=== PATIENT | male | born 1965 | race Caucasian/White ===

== ENCOUNTER → 2020-02-12 14:00 | Outpatient (BNVA) | payer OTHER, SELFPAY | PROVIDERS: Family Provider Family Medicine; PCP Nurse Practitioner; Visit Provider Nurse Practitioner Family | DX: R50.9 Fever, unspecified (principal); R53.83 Other fatigue; Z11.59 Encounter for screening for other viral diseases | CPT/HCPCS: 87635 ==

== ENCOUNTER 2020-06-08 10:49 | Inpatient (IN) | payer OTHER, SELFPAY ==
--- NOTE | 2020-06-07 | SCC_ITS ---
Procedure Done: 1. Cystoscopy with left ureteral stent placement (7 Upper Sor[place] by 30 cm double-pigtail without string) 10.9 seconds of fluoroscopic guidance, for a cumulative dose of 1.57 mGy, was provided to Dr. Haro by the radiology department. C-arm images of the abdomen were saved for the patient's permanent record. [facility]
[2020-06-08] VITALS (11 sets, daily range): BP systolic 98–133; BP diastolic 63–78; PULSE 58–112; RESP 16–20; TEMP 36.6–38.7; O2SAT 95–100; BMI 21.6
--- NOTE | 2020-06-08 11:21 | CTR_ITS ---
PROCEDURE INFORMATION: Exam: CT Abdomen And Pelvis Without Contrast Exam date and time: 06/08/2020 11:26 AM Age: 54 years old Clinical indication: Abdominal pain; Flank; Left; Additional info: Flank/abdominal pain TECHNIQUE: Imaging protocol: Computed tomography of the abdomen and pelvis without contrast. Radiation optimization: All CT scans at this facility use at least one of these dose optimization techniques: automated exposure control; mA and/or kV adjustment per patient size (includes targeted exams where dose is matched to clinical indication); or iterative reconstruction. COMPARISON: CR Upper GI w/ Air* [id number] 03/17/2017 10:37 AM RADIATION DOSE METRICS: Total DLP (mGy-cm): 486.25 FINDINGS: Lungs: Mild atelectasis left lung base. Liver: Normal. No mass. Gallbladder and bile ducts: Surgical clips are present in the region of the gallbladder fossa. Pancreas: Normal. No ductal dilation. Spleen: Splenic granulomas are present. Adrenal glands: Hypertrophy of the left adrenal gland Kidneys and ureters: Dilatation of the left renal pelvis and proximal ureter secondary to a calcification within the proximal aspect of the left ureter. This measures approximately 4 mm. Small adjacent 2 mm calcification. 4 mm calcification midpole left kidney Probable 1 cm cyst left kidney Stomach and bowel: Unremarkable. No obstruction. No mucosal thickening. Appendix: Appendix normal. Intraperitoneal space: Unremarkable. No free air. No significant fluid collection. Vasculature: Calcification of the aorta. Lymph nodes: Unremarkable. No enlarged lymph nodes. Urinary bladder: Mildly thickened however nondistended bladder. Mildly prominent prostate gland. Correlate. Reproductive: See Urinary bladder finding. Bones/joints: Unremarkable. No acute fracture. Soft tissues: Unremarkable. CT/CT kidney stone [id number] IMPRESSION: 1. Dilatation of the left renal pelvis and proximal ureter secondary to a calcification within the proximal aspect of the left ureter. This measures approximately 4 mm. Small adjacent 2 mm calcification. 2. Mildly thickened however nondistended bladder. Mildly prominent prostate gland. Correlate. 3. Appendix normal. Radiation Dose CTDIVOL = (mGy): DLP = 486.25 (mGy-cm)
[2020-06-08 11:37] LABS: Basophils % 0.4 %; Eosinophils % 0.3 %; Hematocrit 47.2 % (42.0-52.0); Hemoglobin 15.9 g/dL (11.7-16.6); Lymphocytes # 1.6 10^3/uL (0.8-4.8); Lymphocytes % 14.6 %; Mean Corpuscular HGB Conc 33.7 g/dL (30.0-36.0); Mean Corpuscular Hemoglobin 31.2 pg (28.0-34.0); Mean Corpuscular Volume 92.5 fL (80-94); Mean Platelet Volume 9.1 fL (7.4-10.4); Monocytes # 1.5 10^3/uL (0.2-0.9); Monocytes % 13.7 %; Neutrophils # 7.79 10^3/uL (1.8-7.7); Neutrophils % 70.4 %; Nucleated Red Blood Cells % 0 %; Platelet Count 277 10^3/cmm (130-400); Red Cell Distribution Width 12.2 % (12.1-15.1); White Blood Count 11.1 10^3/uL (4.0-10.0)
--- NOTE | 2020-06-08 11:44 | W.ED.MALEGU ---
HPI - Male Genitourinary General: Chief complaint: Urogenital-Male Stated complaint: suspects kidney stones Time Seen by Provider: 06/08/20 11:18 Source: patient Mode of arrival: ambulatory Limitations: no limitations History of Present Illness: HPI Narrative: Chris is a nice 54-year-old male who comes in complaining of left-sided flank pain. He states he has had the pain intermittently for the past 6 days. He states his pain feels like a kidney stone. He has had kidney stones in the past. He denies any fevers, chills, nausea, vomiting or any other complaints. He is not aware of any blood in his urine. Associated symptoms: Deny dysuria, hematuria, nausea or vomiting Review of Systems Const: Denies: fever(s), chills, body aches, fatigue, malaise or diaphoresis Eyes: Denies: change in vision, blurry vision, photophobia, eye discomfort, eye discharge, eye redness or yellow eyes ENMT: Denies: throat pain, odynophagia, hoarseness, swelling of lips/tongue, ear or mastoid pain, ear discharge, change in hearing or nasal discharge Card: Denies: chest pain, palpitations, irregular heart rhythm, edema, lightheadedness, syncope, pre-syncope, dyspnea on exertion or orthopnea Resp: Denies: dyspnea, productive cough, non-productive cough, wheezing, hemoptysis or chest congestion GI: Denies: abdominal pain, nausea, vomiting, hematemesis, coffee ground emesis, heartburn, diarrhea, constipation, GI cramping, hematochezia or melena : Reports: flank pain; Denies: dysuria, urinary frequency, urinary urgency or hematuria Musc: Denies: neck pain, back pain, extremity pain, extremity swelling, joint pain, joint swelling, joint redness, joint warmth or joint stiffness Skin/Breast: Denies: rash, pruritus, erythema, skin pain or skin tenderness Neuro: Denies: headache(s), numbness in extremities, weakness in extremities, sensory changes, lack of coordination, difficulty walking, dizziness, vertigo, confusion, Slurred speech present or seizure-like activity Keith/Lymph: Denies: easy bruising, easy bleeding, petechiae, purpura or enlarged lymph nodes All/Imm: Denies: urticaria, throat swelling, tongue swelling, facial swelling or acute wheezing PFSH ED PFSH: Medical History (Updated 06/08/20 @ 15:52 by Karen Coffey) Anxiety COPD (chronic obstructive pulmonary disease) Erectile dysfunction Esophageal dysphagia GERD (gastroesophageal reflux disease) Insomnia Smoker Urolithiasis Surgical History Hx of hernia repair Hx of repair of left rotator cuff Family History Other CAD (coronary artery disease) Cancer Diabetes Suicide Social History Smoking and tobacco status: current every day smoker cigarettes Packs smoked per day: 1 Alcohol intake: never Agree to transfusion: Yes (09/25/2019) Physical Exam Const: COMMON NORMALS: no acute distress, patient oriented x3, no limitations and alert GENERAL APPEARANCE: cooperative HENMT: COMMON NORMALS: normocephalic, atraumatic, external ears normal, EAC's normal and Normal external nose present HEAD & SCALP: normal to inspection, normocephalic and atraumatic FACE & SINUS: normal facial exam and face symmetric NOSE: Normal external nose present and Normal nares present EXTERNAL EAR: Yes external ears normal EXTERNAL AUDITORY CANAL: EAC's normal MOUTH: Normal oral and palatal mucosa present, lip normal and tongue normal Eye: COMMON NORMALS: Equal, round and reactive pupils present and conjunctivae normal GENERAL EYE: appearance normal, both eyes and all related structures ALIGNMENT: Yes alignment normal PERIORBITAL: periorbital findings normal EYELID: eyelids normal CONJUNCTIVA: Yes conjunctivae normal SCLERA: sclerae normal PUPIL: Yes Equal, round and reactive pupils present Neck/C-Spine: COMMON NORMALS: full ROM, no lymphadenopathy, supple, no meningeal signs and no JVD GENERAL: Yes normal visual inspection and Yes trachea midline Chest: COMMONS NORMALS: normal inspection of the chest and normal palpation of entire chest wall Resp: COMMON NORMALS: normal respiratory effort, No retractions, No use of accessory muscles and clear to auscultation bilaterally EFFORT & INSPECTION: Yes able to speak in complete sentences and Yes symmetric chest movement AUSCULTATION: clear to auscultation bilaterally, no crackles, no rales, no rhonchi and no wheezes Cardio: COMMON NORMALS: no JVD, regular rate, regular rhythm, S1 normal heart sound present and S2 normal heart sound present RATE: regular rate RHYTHM: regular rhythm HEART SOUNDS: S1 normal heart sound present, S2 normal heart sound present, no click, no gallops, no murmurs and no rubs GI: COMMON NORMALS: Soft to palpation and No hepatosplenomegaly present PALPATION: Yes Soft to palpation, No Tenderness to palpation present (GI), No Guarding due to palpation present (GI), No Rigid due to palpation, Yes No hepatosplenomegaly present, No Hernia present, No Palpable mass present and No Pulsatile mass present : COMMON NORMALS: Yes no CVA tenderness BLADDER/KIDNEY EXAM: Yes no CVA tenderness Back/Pelvis: COMMON NORMALS: no CVA tenderness, thoracic and lumbar spine normal to inspection, no thoracic nor lumbar tenderness and thoraco-lumbar ROM normal Extremity: COMMON NORMALS: normal to inspection, full ROM, capillary refill normal, no joint enlargement, no clubbing, cyanosis or edema and no calf tenderness Neuro: COMMON NORMALS: patient oriented x3, CN's II-XII intact bilaterally, moves all extremities, no focal motor deficits and no sensory deficits noted SENSORIUM/ORIENTATION: Yes alert MENINGEAL SIGNS: Yes no meningeal signs SPEECH: speech normal Psych: COMMON NORMALS: mental status grossly normal, Normal thought process present, cooperative, normal affect, speech normal and activity/motor behavior normal SPEECH: Yes normal speech THOUGHT PROCESS: Normal thought process present Skin: COMMON NORMALS: no rashes or lesions noted, turgor normal, no jaundice, no petechiae and no mottling GENERAL SKIN EXAM: no rashes or lesions noted and turgor normal Course Vital Signs: Vital signs: Vital Signs Pulse Rate 58 L 06/08/20 12:22 Respiratory Rate 18 06/08/20 12:22 Blood Pressure 133/77 06/08/20 12:22 Pulse Oximetry 100 06/08/20 12:22 MDM - Male MDM Narrative: Medical decision making narrative: The case including infected urine, history of fever and stone were reviewed with Dr. Haro. He is coming to take the patient to the operating room to place a stent. Lab Data: Attestation: I reviewed the patient's lab results. Labs: Lab Results 06/08/20 06/08/20 06/08/20 Range/Units 11:22 11:22 12:18 WBC 11.1 H (4.0-10.0) 10^3/ uL RBC 5.10 (4.1-5.3) 10^6/u L Hgb 15.9 (11.7-16.6) g/dL Hct 47.2 (42.0-52.0) % MCV 92.5 (80-94) fL MCH 31.2 (28.0-34.0) pg MCHC 33.7 (30.0-36.0) g/dL RDW 12.2 (12.1-15.1) % Plt Count 277 (130-400) 10^3/c mm MPV 9.1 (7.4-10.4) fL Neut % (Auto) 70.4 % Lymph % (Auto) 14.6 % [place] % (Auto) 13.7 % Eos % (Auto) 0.3 % Baso % (Auto) 0.4 % Neut # (Auto) 7.79 H (1.8-7.7) 10^3/u L Lymph # (Auto) 1.6 (0.8-4.8) 10^3/u L [place] # (Auto) 1.5 H (0.2-0.9) 10^3/u L Eos # (Auto) 0.0 (0.0-0.8) 10^3/u L Baso # (Auto) 0.0 (0.0-0.1) 10^3/u L Nucleated RBC % (a uto) 0 % Nucleated RBCs # 0.0 /100WBC Sodium 135 L (136-145) mmol/L Potassium 3.7 (3.5-5.1) mmol/L Chloride 95 L (98-107) mmol/L Carbon Dioxide 28 (22-29) mmol/L Anion Gap 15.7 (5-19) BUN 11 (6-20) mg/dL Creatinine 0.9 (0.7-1.2) mg/dL GFR Calculation 87.3 L (90-130) mL/min Glucose 120 H (65-115) mg/dL Calculated Osmolal ity 281 L (285-295) mOsm/k g Calcium 9.7 (8.5-10.5) mg/dL Total Bilirubin 0.3 (0.15-1.2) mg/dL AST 26 (0-40) U/L ALT 30 (0-41) U/L Alkaline Phosphata se 168 H (40-130) IU/L Total Protein 7.5 (6.6-8.7) g/dL Albumin 4.2 (3.5-5.2) g/dL Globulin 3.3 (1.3-4.6) g/dL Urine Color Dark yellow (Yellow) Urine Appearance Hazy A (CLEAR) Urine pH 5 (5-7) Ur Specific Gravit y 1.020 (1.005-1.030) Urine Protein 1+ H (Negative) Urine Glucose (UA) Norm (Normal) Urine Ketones 1+ H (Negative) Urine Blood 3+ H (Negative) Urine Nitrate Positive H (Negative) Urine Bilirubin 1+ H (Negative) Urine Urobilinogen 4 H (Negative) mg/dL Ur Leukocyte Rosemarie ase 2+ H (Negative) Urine RBC 10-15 H (0-2) /hpf Urine WBC 25-40 H (0-5) /hpf Ur Squamous Epith Cells Rare (0-5) /hpf Amorphous Sediment Not Reportable Urine Bacteria 4+ H (NONE) /hpf Urine Mucus 2+ /hpf Imaging Data: CT Abd/Pel: Radiologist's impression: [address] [address] [address] Scan Report Signed Patient: Chris Reis #: [id number] : 1965Acct#:[id number] Age/Sex: 54 / MADM Date: 06/08/20 Loc: ERRoom/Bed: Attending Dr: Ordering Provider/Ordering MD: Karen Coffey DO Date of Service: 06/08/20 Procedure(s): CT kidney stone [id number] Accession Number(s): [id number] Report Number: [id number] PROCEDURE INFORMATION: Exam: CT Abdomen And Pelvis Without Contrast Exam date and time: 06/08/2020 11:26 AM Age: 54 years old Clinical indication: Abdominal pain; Flank; Left; Additional info: Flank/abdominal pain TECHNIQUE: Imaging protocol: Computed tomography of the abdomen and pelvis without contrast. Radiation optimization: All CT scans at this facility use at least one of these dose optimization techniques: automated exposure control; mA and/or kV adjustment per patient size (includes targeted exams where dose is matched to clinical indication); or iterative reconstruction. COMPARISON: CR Upper GI w/ Air* [id number] 03/17/2017 10:37 AM RADIATION DOSE METRICS: Total DLP (mGy-cm): 486.25 FINDINGS: Lungs: Mild atelectasis left lung base. Liver: Normal. No mass. Gallbladder and bile ducts: Surgical clips are present in the region of the gallbladder fossa. Pancreas: Normal. No ductal dilation. Spleen: Splenic granulomas are present. Adrenal glands: Hypertrophy of the left adrenal gland Kidneys and ureters: Dilatation of the left renal pelvis and proximal ureter secondary to a calcification within the proximal aspect of the left ureter. This measures approximately 4 mm. Small adjacent 2 mm calcification. 4 mm calcification midpole left kidney Probable 1 cm cyst left kidney Stomach and bowel: Unremarkable. No obstruction. No mucosal thickening. Appendix: Appendix normal. Intraperitoneal space: Unremarkable. No free air. No significant fluid collection. Vasculature: Calcification of the aorta. Lymph nodes: Unremarkable. No enlarged lymph nodes. Urinary bladder: Mildly thickened however nondistended bladder. Mildly prominent prostate gland. Correlate. Reproductive: See Urinary bladder finding. Bones/joints: Unremarkable. No acute fracture. Soft tissues: Unremarkable. CT/CT kidney stone [id number] IMPRESSION: 1. Dilatation of the left renal pelvis and proximal ureter secondary to a calcification within the proximal aspect of the left ureter. This measures approximately 4 mm. Small adjacent 2 mm calcification. 2. Mildly thickened however nondistended bladder. Mildly prominent prostate gland. Correlate. 3. Appendix normal. Radiation Dose CTDIVOL = (mGy): DLP = 486.25 (mGy-cm) Dictated By:Martín Robles MD Signed By:Martín Robles MDSigned Date/Time:06/08/201223 DD/ 1223 Discharge Plan Discharge Patient Disposition: Admitted As Inpatient Clinical Impression: Obstructive pyelonephritis, Urolithiasis Condition: Stable Coding Level of Care Code ED Furnace Attendant for Chg Fwd Exam Comprehensive
[2020-06-08 12:38] LABS: Alanine Aminotransferase 30 U/L (0-41); Albumin Level 4.2 g/dL (3.5-5.2); Alkaline Phosphatase 168 IU/L (40-130); Anion Gap 15.7 (5-19); Aspartate Amino Transferase 26 U/L (0-40); Blood Urea Nitrogen 11 mg/dL (6-20); Calcium 9.7 mg/dL (8.5-10.5); Carbon Dioxide 28 mmol/L (22-29); Chloride 95 mmol/L (98-107); Globulin 3.3 g/dL (1.3-4.6); Glomerular Filtration Rate 87.3 mL/min (90-130); Glucose 120 mg/dL (65-115); Osmolality Calculated 281 mOsm/kg (285-295); Potassium 3.7 mmol/L (3.5-5.1); Sodium 135 mmol/L (136-145); Total Bilirubin 0.3 mg/dL (0.15-1.2); Total Protein 7.5 g/dL (6.6-8.7)
[2020-06-08 14:11] LABS: Add Urine Microscopic? YES; Bilirubin Urine 1+ (Negative); Blood Urine 3+ (Negative); Glucose Urine UA Norm (Normal); Ketones Urine 1+ (Negative); Leukocyte Esterase Urine 2+ (Negative); Nitrate Urine Positive (Negative); Protein Urine 1+ (Negative); Urine Appearance Hazy (CLEAR); Urine Color Dark Yellow (Yellow); Urobilinogen Urine 4 mg/dL (Negative); pH Urine 5 (5-7)
[2020-06-08 14:18] LABS: Bacteria Urine 4+ /hpf; Mucus Urine 2+ /hpf; Squamous Epithelial Cell Urine RARE /hpf (0-5); WBC Urine 25-40 /hpf (0-5)
[2020-06-08 14:19] LABS: Add Urine Culture? Yes
[2020-06-08] MEDS: cefTRIAXone 1,000 MG in sodium chloride 0.9% (plus) 50 ML 100 MG IV ×2 (14:32→15:46)
--- NOTE | 2020-06-08 14:38 | SC_ITS ---
WS: [id number] C-arm fluoroscopy of the left abdomen for ureteral stent, 06/08/2020 Clinical Data: stone Comparison: KUB, 09/15/2015 Findings: The proximal portion of a ureteral stent appears to lie in the region of the left renal pelvis. SC/C-arm FL for Urology Impression: Insertion of left ureteral stent.
--- NOTE | 2020-06-08 15:06 | PM.HP ---
Providers/Chief Complaint Admitting Physician: Estrellita Primary Care Provider: Dr. Long Chief Complaint: suspects kidney stones History of Present Illness Chris Reis is a 54 year old male who I evaluated for the first time today at the request of Dr. Chairez in the emergency room. The patient presented with a week long history of symptoms suspicious for left renal colic. He has had prior stones and has passed them all. He stated that this 1 was different and that he just felt terrible when he was having intermittent fever and chills. He was seen today in the emergency department with mildly elevated white count, urinalysis consistent with infection, and at least one left mid ureteral obstructing stone. He looked sick. Has not had a recent Covid test. He was negative on February 12, 2020. I reviewed with him the findings in the emergency status and the importance of having his kidney drained while continuing antibiotics in anticipation of definitive treatment of the stone at a later date. I recommended he go to the operating room emergently for stent placement and he agreed after informed consent was obtained following detailed procedure explanation, rationale for this approach, still with the need to definitively treat the stone after infection has been resolved. Review of Systems Const: Reports: fever(s), chills, fatigue and malaise Eyes: Denies: change in vision or blurry vision ENMT: Denies: throat pain Card: Denies: chest pain, palpitations or irregular heart rhythm Resp: Denies: dyspnea or productive cough GI: Reports: abdominal pain and nausea : Reports: flank pain, difficulty urinating, urinary frequency and urinary urgency Musc: Denies: joint redness or joint warmth Skin/Breast: Denies: rash or changing lesions Neuro: Denies: headache(s), numbness in extremities, Slurred speech present or seizure-like activity Psych: Denies: anxiety or memory loss Endo: Denies: flushing Keith/Lymph: Denies: easy bruising or easy bleeding All/Imm: Denies: urticaria, throat swelling or tongue swelling Medications/Allergies Home Medications Medication Instructions Recorded Confirmed Last Taken Type albuterol sulfate 90 mcg/actuation 2 inh INHALATION Q6H PRN #2 units 04/01/20 06/08/20 Unknown Rx breath activated powder inhaler fluticasone furoate 200 1 inh INHALATION DAILY #30 each 04/01/20 06/08/20 Unknown Rx mcg/actuation blister powder for inhalation pantoprazole See Rx Instructions .ROUTE .COMPLEX 04/01/20 06/08/20 Unknown History sildenafil 100 mg tablet 100 mg PO DAILY PRN #30 tab 04/04/20 06/08/20 Unknown Rx acetaminophen [Tylenol Extra 1,000 mg PO PRN 06/08/20 06/08/20 06/08/20 History Strength] ibuprofen 800 mg PO PRN 06/08/20 06/08/20 Unknown History Allergies Allergy/AdvReac Type Severity Reaction Status Date / Time Sulfa (Sulfonamide Allergy Intermediate ALGY-Rash Verified 06/08/20 10:53 Antibiotics) PFSH Acute PFSH: Medical History (Updated 06/08/20 @ 15:12 by Bro aHro MD) Anxiety COPD (chronic obstructive pulmonary disease) Erectile dysfunction Esophageal dysphagia GERD (gastroesophageal reflux disease) Insomnia Smoker Urolithiasis Surgical History Hx of hernia repair Hx of repair of left rotator cuff Family History Other CAD (coronary artery disease) Cancer Diabetes Suicide Social History Smoking and tobacco status: current every day smoker cigarettes Packs smoked per day: 1 Alcohol intake: never Agree to transfusion: Yes (09/25/2019) Vitals/I&O/Wt Last Vital Signs Pulse 58 L 06/08/20 12:22 Resp 18 06/08/20 12:22 BP 133/77 06/08/20 12:22 Pulse Ox 100 06/08/20 12:22 Weight last 48 hrs Weight 155 lb Physical Exam Const: COMMON NORMALS: no acute distress, alert and well nourished GENERAL APPEARANCE: well kempt and well developed ORIENTATION/CONSCIOUSNESS: not confused HENMT: HEAD & SCALP: normocephalic and atraumatic Eye: COMMON NORMALS: conjunctivae normal and no scleral icterus Neck/C-Spine: COMMON NORMALS: full ROM GENERAL: Yes normal visual inspection Lymph: LYMPHATIC: no lymphadenopathy noted and no lymphedema noted Chest: COMMONS NORMALS: normal inspection of the chest Resp: COMMON NORMALS: normal respiratory effort EFFORT & INSPECTION: No labored and No Actively coughing AUSCULTATION: clear to auscultation bilaterally Cardio: COMMON NORMALS: no JVD, regular rate and regular rhythm GI: COMMON NORMALS: Soft to palpation PALPATION: Yes Tenderness to palpation present (GI) : BLADDER/KIDNEY EXAM: Yes bladder normal to palpation PENIS: normal penis MEATUS: meatus normal SCROTUM: Yes testes descended bilaterally and No Scrotal tenderness present TESTES: No testicular mass Back/Pelvis: GENERAL BACK: Yes CVA tenderness CVA tenderness: left Extremity: COMMON NORMALS: no clubbing, cyanosis or edema Neuro: COMMON NORMALS: no focal motor deficits SENSORIUM/ORIENTATION: Yes alert Psych: COMMON NORMALS: mental status grossly normal APPEARANCE: Yes grossly normal and Yes well kempt ATTITUDE: Yes calm and Yes engaged THOUGHT PROCESS: Normal thought process present Skin: COMMON NORMALS: no rashes or lesions noted and no jaundice Data : 06/08/20 11:22 06/08/20 11:22 A&P Assessment and plan (1) Obstructive pyelonephritis: At least 1 left mid ureteral stone with obstruction and UTI. Patient has been febrile with fever of 103 at least. White count mildly elevated. No acute septic symptoms. To the operating room emergently for cystoscopy and stent placement. Status: Acute (2) Left ureteral calculus: Left mid ureteral stone with obstruction complicated by UTI. Status: Acute (3) Urolithiasis: History of recurrent stones. Does still have some renal calculi in addition to the acute left ureteral calculus Status: Acute Qualifiers: Urinary calculus location: kidney and ureter Qualified Code(s): N20.2 - Calculus of kidney with calculus of ureter (4) COPD (chronic obstructive pulmonary disease): Status: Acute (5) Fever: Status: Acute Qualifiers: Fever type: due to other condition Qualified Code(s): R50.81 - Fever presenting with conditions classified elsewhere Attestations Medical Necessity Statement*: Patient requires hospitalization for obstructive pyelonephritis. Emergency stenting is indicated. May require hospitalization >2 midnights for care of this. Coding Level of Care Code Acute Fixing Carpenter for [facility] Diagnoses Obstructive pyelonephritis N11.1 Left ureteral calculus N20.1 Urolithiasis N20.2 Urinary calculus location: kidney and ureter COPD (chronic obstructive pulmonary disease) J44.9 Fever R50.81 Fever type: due to other condition
[2020-06-08] MEDS: sodium chloride 0.9% 1,000 ML 30 ML IV (15:20)
--- NOTE | 2020-06-08 15:20 | ANES.PREANE2 ---
Pre-Anesthetic Assessment Pre-Anesthetic Assessment: Height/Weight: Height 1.8 m Weight 70.307 kg Pulse Resp BP Pulse Ox 58 L 18 133/77 100 06/08/20 12:22 06/08/20 12:22 06/08/20 12:22 06/08/20 12:22 Proposed Procedure: Operation Date: 06/08/20 14:35 Proposed Procedures p Cystoscopy(Not Applicable) - Bro Haro MD s Ureteral Stent Placement(Not Applicable) - Bro Haro MD Was Beta Therese taken within 24 hours: N/A Social: Social History: Tobacco (marijuana daily) Exam: Pre-Anes Outpt Exam: alert, oriented x 3, clear to auscultation bilaterally and regular rate & rhythm Airway: Submandibular: WNL Cervical ROM: WNL MP: 2 Additional comments: top plate History/ROS: No significant history except as noted Pulmonary: Pulmonary: COPD (daily inhalers) CV/HEM: CV/HEM: None reported Comments: 4th kidney stone, never had surgery for stone before : : None reported Hepatic: Hepatic: None reported GI: GI: GERD and [place] hernia Metabolic: Metabolic: None reported Musc/skel: Musc/skel: None reported Neuropsych: Neuropsych: Anxiety Anesthetic Plan: ASA status: 2 Anesthesia: Anesthesia Evaluation and MAC Risk of > 500 ml blood loss (7ml/kg in children): No PFSH Anesthesia PFSH: Medical History (Updated 06/08/20 @ 15:12 by Bro Haro MD) Anxiety COPD (chronic obstructive pulmonary disease) Erectile dysfunction Esophageal dysphagia GERD (gastroesophageal reflux disease) Insomnia Smoker Urolithiasis Surgical History Hx of hernia repair Hx of repair of left rotator cuff Family History Other CAD (coronary artery disease) Cancer Diabetes Suicide Social History Smoking and tobacco status: current every day smoker cigarettes Packs smoked per day: 1 Alcohol intake: never Agree to transfusion: Yes (09/25/2019) Data Anesthesia CBC & Chem 7: 06/08/20 11:22 06/08/20 11:22 Other Labs: Laboratory Results - last 48 hr 06/08/20 06/08/2006/08/20 11:22 11:22 12:18 WBC 11.1 H RBC 5.10 Hgb 15.9 Hct 47.2 MCV 92.5 MCH 31.2 MCHC 33.7 RDW 12.2 Plt Count 277 MPV 9.1 Neut % (Auto) 70.4 Lymph % (Auto) 14.6 [place] % (Auto) 13.7 Eos % (Auto) 0.3 Baso % (Auto) 0.4 Neut # (Auto) 7.79 H Lymph # (Auto) 1.6 [place] # (Auto) 1.5 H Eos # (Auto) 0.0 Baso # (Auto) 0.0 Nucleated RBC % (auto) 0 Nucleated RBCs # 0.0 Sodium 135 L Potassium 3.7 Chloride 95 L Carbon Dioxide 28 Anion Gap 15.7 BUN 11 Creatinine 0.9 GFR Calculation 87.3 L Glucose 120 H Calculated Osmolality 281 L Calcium 9.7 Total Bilirubin 0.3 AST 26 ALT 30 Alkaline Phosphatase 168 H Total Protein 7.5 Albumin 4.2 Globulin 3.3 Urine Color Dark yellow Urine Appearance Hazy A Urine pH 5 Ur Specific [place] 1.020 Urine Protein 1+ H Urine Glucose (UA) Norm Urine Ketones 1+ H Urine Blood 3+ H Urine Nitrate Positive H Urine Bilirubin 1+ H Urine Urobilinogen 4 H Ur Leukocyte Esterase 2+ H Urine RBC 10-15 H Urine WBC 25-40 H Ur Squamous Epith Cells Rare Amorphous Sediment Not Reportable Urine Bacteria 4+ H Urine Mucus 2+ Cardiac Studies: No Data to Display
--- NOTE | 2020-06-08 15:39 | PM.OP ---
Operative Report Date of procedure: June 08, 2020 Pre-op Diagnosis: Left obstructive pyelonephritis, left mid ureteral stone Post-op diagnosis: same Procedure Done: 1. Cystoscopy with left ureteral stent placement (7 [place] Islander by 30 cm double-pigtail without string) Pathology: none sent Surgeon: Estrellita Anesthesia: MAC Estimated blood loss: Minimal Urine output: Not measured Complications: None Condition: stable Disposition: PACU Brief History: Chris is a very pleasant 54-year-old white male who I evaluated for the first time today at the request of the emergency department for evidence of obstructive pyelonephritis. Films lab patient reviewed and examined. Recommended emergent left ureteral stent placement. Procedure: After emergent evaluation examination and obtaining of informed consent he was taken to the operating suite on 06/08/2020 where general anesthesia was administered without difficulty after appropriate timeout was performed, SCDs confirmed to be functioning, preoperative antibiotics administered, beta-jose protocol confirmed. Prepped and draped in the usual sterile fashion in dorsal lithotomy position paying careful attention to avoiding pressure points. 21 [place] Islander cystoscope with 30 degree lens was introduced into the urethral meatus and advanced into the bladder under videoscopy. The bladder showed severe cystitis changes more typical for acute cystitis. No stones were seen. Fluoroscopy revealed a calcification in the area of the left mid ureter consistent with the findings on CT scan. A flexible tip guidewire was then advanced up the left ureter bypassing the stone and curling in the area of the renal pelvis or upper pole calyx. A 7 [place] Islander by 30 cm double-pigtail stent without string was then advanced over the guidewire through the cystoscope into appropriate position as confirmed via fluoroscopy and cystoscopy. The stent was confirmed to be draining. The bladder was drained and the procedure was completed. Tolerated procedure well without complications and was awakened in the operating room and returned to recovery room in stable condition. PLANS: 1. Admit to inpatient status due to the likelihood of requiring care extending over at least 2 midnights. 2. Continue IV antibiotics and anticipate discharge on oral antibiotics pending cultures. 3. Once infection has been adequately treated we will attempt at definitive therapy either via endoscopy or ESWL.
[2020-06-08] MEDS: dextrose 5%-sod chloride 0.9% 1,000 ML 150 ML IV ×2 (18:22→23:56)
[2020-06-08] MEDS: docusate sodium 100 mg Capsule PO (18:23)
[2020-06-08] MEDS: famotidine 20 mg/2 mL INJ IVP (18:23)
[2020-06-09] VITALS: BP 105/63; PULSE 72; RESP 18; TEMP 37.1; O2SAT 96
[2020-06-09 03:30] VITALS: BP 126/71; PULSE 85; RESP 18; TEMP 37.1; O2SAT 97
[2020-06-09] MEDS: cefTRIAXone 2,000 MG in sodium chloride 0.9% (plus) 50 ML 100 MG IV (03:51)
[2020-06-09 04:00] VITALS: BP 126/71; PULSE 77; RESP 18; TEMP 37.1; O2SAT 95
[2020-06-09] MEDS: dextrose 5%-sod chloride 0.9% 1,000 ML 150 ML IV (06:10)
[2020-06-09 06:51] VITALS: PULSE 74; RESP 18; O2SAT 95
--- NOTE | 2020-06-09 06:56 | ANE.PACU2 ---
Inpatient post-anesthesia follow up: Airway intact: Yes Vital signs: Temperature 98.7 F Pulse Rate 74 Respiratory Rate 18 Blood Pressure 126/71 Pulse Oximetry 95 Oxygen Delivery Me thod Room Air Oxygen Flow Rate Fraction of Inspir ed Oxygen Hydration adequate: Yes Nausea and vomiting: No Pain level: 1 Mental status: Baseline
[2020-06-09] MEDS: famotidine 20 mg/2 mL INJ IVP (07:00)
[2020-06-09 07:24] VITALS: BP 139/74; PULSE 82; RESP 18; TEMP 36.3; O2SAT 98
--- NOTE | 2020-06-09 09:34 | PC.CHAP ---
Pastoral Care Encounter/Spiritual Assessment Type of Contact [] Declined meter installer and remover visit [] Patient/Family/Request visit [] Outpatient visit [] Follow-up visit [] Physician referral [] Code/Alert [x] Routine visit [] Staff referral [] Actively dying [] Patient sleeping [] Family support [] [] Out of room [] Palliative care [] [] Receiving care in room [] Pre-surgical visit [] Trauma [] Long length of stay [] ICU visit [] Other: Relational/Emotional Strength [] Patient feels connected with others/family/visitors/staff [] Distress [] Loneliness/isolation [] Abandonment Spirituality of Patient [] Person of [place] [] Attends Christian of their [place] [] Believes in Prayer [] Reads Bible or Oriental Orthodox materials [] There are Spiritual issues to be addressed Tractor Trailer Driver Interventions [x] Prayer [x] Active listening [x] Non-anxious presence [x] Spiritual/emotional support [] Crisis/trauma care [] Spiritual counseling [] Bereavement support [] Provided bereavement packet [] Provided Bible/devotional materials [] Provided toy/stuffed animal, coloring book to patient or family member [] Provided Communion [] Anointing/[place] [] Salvation [x] Completed spiritual assessment [] Other: Impact on Illness or Injury [] Angry [] Fearful [] Anxious [] Often cries [] Exhaustion [] Unable to work [] Unable to attend caodaism [] Unable to walk/stand [] Unable to read [] Unable to drive [] Unable to eat/drink [] Unable to sleep [] Unable to be with family [] Patient intubated [] Other: Summary patient so ready to go home... feeling so much better. missing family Time spent with patient 10 min
--- NOTE | 2020-06-09 10:39 | PC.NURSE ---
PATIENT LEAVING AMA pt called this nurse into pts room and stated, I am not staying in this hospital anymore. I need you to get this damn IV out of my arm. this nurse asked pt what was going on and why he did not want to stay, pt stated, you guys aren't doing anything for me, I haven't even heard about my lab results this morning. I am leaving. attempted to calm pt, and pt still continued to yell and cuss at this nurse. informed charge nurse, BABS Scott. Sonia attempted to talk to pt and again, pt still stating he is leaving. notified Dr. Haro via telephone, orders were to educate pt on this decision. pt still refusing to stay. IV removed by Sonia. MELINDA paperwork signed by pt.
--- NOTE | 2020-06-09 11:06 | PC.NURSE ---
this nurse was called to pts room to talk with him due to him wanting to leave AMA. When asked why patient waned to leave he stated i want a cigarette i explained to patient that we are a non-smoking facility and that i would be happy to call Dr. Haro and get an order for him to have a nicotine patch. patient stated that it wouldn't help and im not chewing the gum either this nurse explained to him the importance of waiting for the doctor to discharge him due to him needing antibiotics. patient continued to refuse to stay, he understood the risks of leaving without being discharged. pt was alert and oriented, iv was discontinued and patient left facility.
[2020-06-09 11:15] VITALS: BP 139/74; PULSE 82; RESP 18; TEMP 36.3; O2SAT 98
--- NOTE | 2020-06-09 17:17 | P.DS_ITS ---
Discharge Providers Date of Admission: 06/08/20 15:58 Date of Discharge: June 09, 2020 Attending Provider at Admission: Bro Haro MD Attending Provider at Discharge: Bro Haro MD Primary Care Provider: PATRICIA Alcaraz Diagnoses at Discharge Discharge Diagnosis (1) Obstructive pyelonephritis: Status: Acute (2) Left ureteral calculus: Status: Acute (3) Urolithiasis: Status: Acute Qualifiers: Urinary calculus location: upper urinary tract Qualified Code(s): N20.9 - Urinary calculus, unspecified (4) COPD (chronic obstructive pulmonary disease): Status: Acute (5) Fever: Status: Acute Qualifiers: Fever type: due to other condition Qualified Code(s): R50.81 - Fever presenting with conditions classified elsewhere Reason for Visit Reason for Visit: suspects kidney stones Hospital Course Hospital Course The patient was seen in the emergency department on 06/08/2020 with 1 week history of feeling terrible, having left renal colicky symptoms, and spiking temperatures to as high as 103 before the visit. Work-up revealed UTI and CT scan showed an obstructing stone or small stones in the left mid ureter. Clinically he was quite ill. For that reason it was recommended that he go to the operating room emergently for obstructive pyelonephritis in order to prevent progression to sepsis. A left ureteral stent was placed emergently and went very well. Postoperatively he did spike a fever but that improved over the next 18 hours. On postoperative day #1 the patient became quite agitated with having to stay in the hospital. Prior to my arrival to the hospital he declared that he was leaving, remove the IV, and could not be persuaded. It should be noted that I spoke to him in great detail before the procedure about just how sick he is with potential for sepsis and even if not adequately treated. He expressed understanding but obviously changed his mind. We tried to contact his but she was unavailable at the time and all of this was unfolding. I was able to reach her later and reviewed all of this with her. She was quite frustrated by this as she had been before his admission because he had refused to come to the hospital for over a week despite being quite ill. I did recommend continuing antibiotics and a prescription for LEVAQUIN 500 mg daily for 2 weeks was sent to [facility]. Final cultures are pending but he is growing greater than 100,000 colonies of gram-negative rods in his urine. The plan as expressed to his was to have him come to the office next week, obtain a plain x-ray, and make definitive plans for treatment likely with ESWL. I also reviewed with her the absolute critical importance to have the stent dealt with and removed at some point after appropriate treatment. We discussed encrustation and calcification of the stent which would make it very very difficult and with a high morbidity rate if not dealt with in appropriate timeframe. Physical Exam Const: COMMON NORMALS: no acute distress and patient oriented x3 GENERAL APPEARANCE: combative; not cooperative HENMT: COMMON NORMALS: normocephalic and atraumatic HEAD & SCALP: normocephalic and atraumatic Eye: COMMON NORMALS: negative for no scleral icterus Resp: COMMON NORMALS: normal respiratory effort EFFORT & INSPECTION: No respiratory distress Neuro: COMMON NORMALS: patient oriented x3 SENSORIUM/ORIENTATION: No Orientation impaired and No obtunded Psych: THOUGHT PROCESS: Illogical thought process present INSIGHT: Good insight present (Psych) and questionable Discharge Data Data Completed and Pending: Completed Studies During Hospitalization Category Date Time Status CT kidney stone 7 [id number] Urgent Cat Scan 06/08/20 11:21 Completed Pending at discharge Category Date Time Status C-arm Fluoroscopy [id number] Routine Exams 06/08/20 14:38 Taken Basic Metabolic P gaby Routine Lab 06/09/20 08:58 Ordered Complete Blood Co unt w/Auto Routine Lab 06/09/20 08:58 Ordered Urine Culture Sta t Lab 06/08/20 12:18 Results Vitals: Last Vital Signs Temp 97.3 F L 06/09/20 11:15 Pulse 82 06/09/20 11:15 Resp 18 06/09/20 11:15 BP 139/74 06/09/20 11:15 Pulse Ox 98 06/09/20 11:15 Discharge Plan Discharge Patient Disposition: Left Against Medical Advice Condition: Stable Prescriptions: No Action pantoprazole See Rx Instructions .ROUTE .COMPLEX RF: 0 Arnuity Ellipta 200 mcg/actuation blister with device 1 inh INHALATION DAILY Qty: 30 RF: 2 ProAir RespiClick 90 mcg/actuation aerosol powdr breath activated 2 inh INHALATION Q6H PRN (Reason: shortness of breath or wheezing) Qty: 2 RF: 3 sildenafil 100 mg tablet 100 mg PO DAILY PRN (Reason: sexual activity) Qty: 30 RF: 3 levofloxacin 500 mg tablet 500 mg PO DAILY Qty: 14 RF: 1 Tylenol Extra Strength 500 mg Tablet 1,000 mg PO PRN RF: 0 ibuprofen 200 mg Tablet 800 mg PO PRN RF: 0 Activity Restrictions/Additional Instructions: Patient left before capable of doing this Discharge Attestations Time Spent in Discharge Care*: less than 30 min Quality Metrics Clinical Quality Measures During this hospital stay, did patient experience: None Coding Level of Care Code Acute Parking Worker for [facility] Fwd Diagnoses Obstructive pyelonephritis N11.1 Left ureteral calculus N20.1 Urolithiasis N20.9 Urinary calculus location: upper urinary tract COPD (chronic obstructive pulmonary disease) J44.9 Fever R50.81 Fever type: due to other condition
--- NOTE | 2020-06-10 14:51 | PC.RESP ---
Smoking Cessation and Pulmonary Rehab packet sent to patient.
== END 2020-06-09 11:06 | disposition left against medical advice (07) | DRG 661 ==
LOC: ER 11:18 → OR 14:27 → MEDSURG 15:58
PROVIDERS: Admitting Provider Urology; Emergency Provider Emergency Medicine; PCP Nurse Practitioner; Visit Provider Urology
PROC: 0TJB8ZZ Inspection of Bladder, Via Natural or Artificial Opening Endoscopic (ICD-10-PCS; CPT 52000; principal; 2020-06-08 14:35)
PROC: 0T778DZ Dilation of Left Ureter with Intraluminal Device, Via Natural or Artificial Opening Endoscopic (ICD-10-PCS; CPT 50605; 2020-06-08 14:35)
DX: N11.1 Chronic obstructive pyelonephritis (principal); J44.9 Chronic obstructive pulmonary disease, unspecified; Z53.29 Procedure and treatment not carried out because of patient's decision for other reasons; N20.1 Calculus of ureter; F41.9 Anxiety disorder, unspecified; K21.9 Gastro-esophageal reflux disease without esophagitis; F17.210 Nicotine dependence, cigarettes, uncomplicated
CPT/HCPCS: 12345; 74176; 76000; 80053; 81001; 85025; 87077; 87086; 87186; 96375; 99282; C2625; J0696; J1100; J2405; J2704; J3010; J3490; J7030

== ENCOUNTER 2020-06-18 10:08 | Outpatient (CLI) | payer OTHER, SELFPAY ==
--- NOTE | 2020-06-18 10:30 | XR_ITS ---
WS: [id number] KUB, 06/18/2020 Clinical Data: Stones Comparison: KUB, 09/15/2015. CT abdomen and pelvis, 06/08/2020. Findings: No abnormal intraabdominal masses or calcifications are seen. There is no dilatated small bowel or ev idence of obstruction. There is a left ureteral catheter in position. Bowel gas obscures detail over the left kidney and lef t ureter. There are clips in the right upper quadrant from a cholecystectomy. XR/XR KUB [id number] Impression: Satisfactory position of left ureteral catheter.
== END 2020-06-18 10:09 | disposition home or self-care (01) ==
LOC: RAD 10:11
PROVIDERS: PCP Nurse Practitioner; Visit Provider Urology
DX: N20.9 Urinary calculus, unspecified (principal); Z96.0 Presence of urogenital implants
CPT/HCPCS: 74018; 81003; 87635

== ENCOUNTER 2020-06-19 10:20 | Day surgery (SDC) | payer OTHER, SELFPAY ==
[2020-06-18 17:13] VITALS: BMI 21.6
[2020-06-19] VITALS (9 sets, daily range): BP systolic 118–147; BP diastolic 60–81; PULSE 59–85; RESP 14–20; TEMP 36.2–36.6; O2SAT 96–100
--- NOTE | 2020-06-19 | SCC_ITS ---
Procedure Done: 1. Cystoscopy, ureteroscopy, laser lithotripsy, stent 18.6 seconds of fluoroscopic guidance, for a cumulative dose of 3.32 mGy, was provided to Dr. Haro by the radiology department. C-arm images of the abdomen were saved for the patient's permanent record. [facility]
--- NOTE | 2020-06-19 10:39 | SC_ITS ---
WS: [id number] C-arm fluoroscopy of the left abdomen for ureteral stent location, 06/19/2020 Clinical Data: LEFT ureteroscopy Comparison: KUB, 06/18/2020 Findings: The left ureteral catheter is looped and is probably within the left renal pelvis. SC/C-arm FL for Urology Impression: Left ureteral stent.
--- NOTE | 2020-06-19 10:57 | ANES.PREANE2 ---
Pre-Anesthetic Assessment Pre-Anesthetic Assessment: Height/Weight: Height 1.8 m Weight 70.307 kg Temp Pulse Resp BP Pulse Ox 97.8 F 84 17 137/81 99 06/19/20 10:42 06/19/20 10:42 06/19/20 10:42 06/19/20 10:42 06/19/20 10:42 Preop Diagnosis: Left ureteral calculus status post emergency stenting for obstructive pyelo Proposed Procedure: Operation Date: 06/19/20 12:00 Proposed Procedures p Left Laser Lithotripsy 81031 [id number] N20.1 N11.1(Not Applicable) - Bro Haro MD s Cystoscopy(Not Applicable) - Bro Haro MD s Retrograde Pyelogram(Left) - Bro Haro MD s Ureteral Stent Exchange(Not Applicable) - Bro Haro MD Familial anesthetic complications: None Was Beta Therese taken within 24 hours: N/A Last intake: NPO > 8 hrs Social: Social History: Tobacco and No alcohol Comment: Marijuana Exam: Pre-Anes Outpt Exam: alert, oriented x 3, clear to auscultation bilaterally and regular rate & rhythm Airway: Cervical ROM: WNL MP: 2 Dentition: Other (top plates) Pulmonary: Pulmonary: COPD GI: GI: GERD and Hiatus hernia Neuropsych: Neuropsych: Anxiety Anesthetic Plan: ASA status: 2 Anesthesia: General Risk of > 500 ml blood loss (7ml/kg in children): No PFSH Anesthesia PFSH: Medical History Anxiety COPD (chronic obstructive pulmonary disease) Erectile dysfunction Esophageal dysphagia GERD (gastroesophageal reflux disease) Insomnia Smoker Urolithiasis Surgical History (Updated 06/18/20 @ 17:12 by Teresa Sifuentes) Hx of hernia repair Hx of repair of left rotator cuff Family History Other CAD (coronary artery disease) Cancer Diabetes Suicide Social History Smoking and tobacco status: current every day smoker cigarettes Packs smoked per day: 1 Alcohol intake: never Adopted: No Caregiver/support person: No Lives independently: No Household members: spouse Marital status: Current occupational status: employed Agree to transfusion: Yes (09/25/2019) Data Anesthesia Cardiac Studies: No Data to Display
[2020-06-19] MEDS: sodium chloride 0.9% 1,000 ML 30 ML IV (10:58)
[2020-06-19] MEDS: levofloxacin-dextrose 5 % 500 MG/100 ML PREMIX 100 MG IV (12:32)
--- NOTE | 2020-06-19 12:33 | P.HPUD_ITS ---
Surgery/Procedure H&P Update DATE OF PROCEDURE: June 19, 2020 DATE H&P PERFORMED: 06/18/20 H&P UPDATE INFORMATION: I have reviewed H&P completed within last 30 days, I have examined patient prior to procedure, No changes to prior documentation and H&P is in [facility] EMR on date indicated PREOP DIAGNOSIS: Left ureteral calculus status post emergency stenting for obstructive pyelo PLANNED PROCEDURE: Operation Date: 06/19/20 12:00 Proposed Procedures p Left Laser Lithotripsy 15829 [id number] N20.1 N11.1(Not Applicable) - Bro Haro MD s Cystoscopy(Not Applicable) - Bro Haro MD s Retrograde Pyelogram(Left) - Bro Haro MD s Ureteral Stent Exchange(Not Applicable) - Bro Haro MD
--- NOTE | 2020-06-19 12:36 | P.OP_ITS ---
Operative Report Date of procedure: June 19, 2020 Pre-op Diagnosis: Left ureteral calculus status post emergency stenting for obstructive pyelo Post-op diagnosis: same Procedure Done: 1. Cystoscopy, ureteroscopy, laser lithotripsy, stent Specimens removed/disposition: Stone fragments Pathology: Stone fragments Surgeon: Estrellita Anesthesia: General Estimated blood loss: Minimal Complications: None Condition: stable Disposition: PACU Brief History: Chris is a pleasant 54-year-old white male who was recently hospitalized with obstructive left pyelonephritis with a large stone in the left mid ureter. He underwent emergency stenting and hospitalization for antibiotic therapy. Ultimately grew a pansensitive organism. Unfortunately he did leave AMA on the postoperative day #1 but held his own on oral Levaquin with no progression of infection. He is being admitted today to outpatient surgery for ureteroscopic laser lithotripsy of the stone. Timing was considered important due to the infection concerns Procedure: After routine preoperative evaluation examination and obtaining of informed consent he was taken to the operating suite on 06/19/2020 where general anesthesia was administered without difficulty after appropriate timeout was performed, SCDs confirmed to be functioning, preoperative antibiotics administered, beta-jose protocol confirmed. Prepped and draped in usual sterile fashion in dorsal lithotomy position paying careful attention to avoiding pressure points. 21 Croatian cystoscope with 30 degree lens was introduced into the urethral meatus and advanced into the bladder under videoscopy. No stones were seen in the bladder. Stent was in the expected position Flexible tip guidewire was then advanced up the left ureter next to the stent with curling in the upper pole calyx. The stent was removed with grasping forceps. The wire was secured to the drapes as a safety wire. A 7.5 Croatian offset semirigid ureteroscope was then advanced up the left ureter. Surprisingly a small stone was encountered in the left distal ureter. This was fragmented with a 200 ?m thulium superpulse laser and the fragments washed out into the bladder. The scope was then passed more proximally in the previously identified mid ureteral it showed stone was encountered in the expected position. Some evidence of mild impaction. It was fragmented with a 200 ?m thulium superpulse laser fiber into small pieces that were then easily withdrawn with a parachute basket and flushed free as well. Final inspection revealed no residual fragments and confirmed the inflammatory changes at the site of the previous stone location. For that reason it was decided to leave a stent indwelling at the completion of the procedure. A 6 Croatian by 30 cm double-pigtail stent was advanced over the guidewire through the cystoscope into appropriate position as confirmed via fluoroscopy and cystoscopy. The bladder was drained procedure completed. Tolerated the procedure well without complications and was awakened in the operating room and returned to the recovery room in stable condition. PLANS: 1. Discharge from outpatient surgery today 2. Follow-up early next week for cystoscopy and stent removal in the clinic. 3. Complete antibiotics
--- NOTE | 2020-06-19 17:26 | ANE.PACU2 ---
Inpatient post-anesthesia follow up: Airway intact: Yes Vital signs: Temperature 97.2 F Pulse Rate 81 Respiratory Rate 18 Blood Pressure 144/70 Pulse Oximetry 97 Oxygen Delivery Me thod Room Air Oxygen Flow Rate 6 Fraction of Inspir ed Oxygen Hydration adequate: Yes Nausea and vomiting: No Pain level: 1 Mental status: Baseline
[2020-06-25 21:43] LABS: Stone Source LEFT URETER
== END 2020-06-19 14:40 | disposition home or self-care (01) ==
PROVIDERS: PCP Nurse Practitioner; Visit Provider Urology
PROC: (CPT 52356; principal; 2020-06-19 12:00)
PROC: 0TJB8ZZ Inspection of Bladder, Via Natural or Artificial Opening Endoscopic (ICD-10-PCS; CPT 52000; 2020-06-19 12:00)
PROC: (CPT 74420; 2020-06-19 12:00)
PROC: (CPT 52356; 2020-06-19 12:00)
DX: N20.1 Calculus of ureter (principal); J44.9 Chronic obstructive pulmonary disease, unspecified; K21.9 Gastro-esophageal reflux disease without esophagitis; F41.9 Anxiety disorder, unspecified; F17.210 Nicotine dependence, cigarettes, uncomplicated; Z82.49 Family history of ischemic heart disease and other diseases of the circulatory system
CPT/HCPCS: 52356; 12345; 76000; 82365; 88300; 96365; C2625; J1100; J1956; J2250; J2405; J2704; J2710; J3010; J3490; J7030

== ENCOUNTER 2022-02-22 10:22 | Outpatient (CLI) | payer SELFPAY ==
--- NOTE | 2022-02-22 10:49 | XR_ITS ---
WS: [id number] XR KUB [id number] REASON FOR EXAM: Nephrolithiasis FINDINGS: No definite intrarenal calculi are identified. No calculi are identified along the abdominal course of the ureters. There is an angular calcification in the left pelvis which is not identified on previous examinations . No other significant abnormality of the abdomen. XR/XR KUB [id number] IMPRESSION: Possible distal left ureteral calculus.
== END 2022-02-22 10:23 | disposition home or self-care (01) ==
PROVIDERS: PCP Family Medicine Adult Medicine; Visit Provider Urology
DX: N20.9 Urinary calculus, unspecified (principal)
CPT/HCPCS: 74018; 81000

== ENCOUNTER → 2022-07-15 15:07 | Outpatient (BNVA) | payer SELFPAY | PROVIDERS: PCP Family Medicine Adult Medicine; Visit Provider Family Medicine Adult Medicine | DX: J44.9 Chronic obstructive pulmonary disease, unspecified (principal); R53.83 Other fatigue; Z87.891 Personal history of nicotine dependence; M19.021 Primary osteoarthritis, right elbow; M19.022 Primary osteoarthritis, left elbow; N20.9 Urinary calculus, unspecified; N52.9 Male erectile dysfunction, unspecified | CPT/HCPCS: 80053; 80061; 84443; 85025 ==

== ENCOUNTER 2023-07-21 13:02 | Outpatient (CLI) | payer MEDICAID, SELFPAY ==
--- NOTE | 2023-07-21 13:45 | CT_ITS ---
WS: [id number] LDCT LUNG CANCER SCREENING HISTORY: smoked for 40+ years TECHNIQUE: Axial imaging performed from the apices to 1 cm below the costophrenic angles. Coronal and sagittal reformats are submitted with axial MIP series. All CT scans at [facility] use at least one of these dose optimization techniques: automated exposure control; mA and/or kV adjustment per patient size (includes targeted exams where dose is matched to clinical indication); or iterativ e reconstruction. DLP: 65.00 mGy.cm DIvol: Mean CTDIvol: 1.10 (mGy) COMPARISON: None available. Diagnostic quality: Satisfactory Lungs: Mild chronic emphysema. Several bilateral calcified granulomas are identified. 4 mm nodule LEF T lung base, image 195 of series 4. No endobronchial lesions. Heart: Normal size heart with no pericardial effusion.. Other findings: Mild atherosclerosis aorta. Benign calcified hilar lymph nodes. Prior cholecystectomy . Nonobstructing calcification superior pole LEFT kidney. No adrenal mass. IMPRESSION: CT/CT lung screening [id number] LUNG-RADS: 2-Benign Appearance or Behavior FOLLOW UP: 12 Month: Continue annual screening with LDCT OTHER FINDINGS (S MODIFIER): None.
== END 2023-07-21 13:03 | disposition home or self-care (01) ==
LOC: RAD 13:03
PROVIDERS: PCP Family Medicine Adult Medicine; Visit Provider Family Medicine Adult Medicine
DX: Z12.2 Encounter for screening for malignant neoplasm of respiratory organs (principal); Z87.891 Personal history of nicotine dependence
CPT/HCPCS: 71271

== ENCOUNTER 2024-10-03 14:04 | Outpatient (CLI) | payer MEDICAID, SELFPAY ==
--- NOTE | 2024-10-03 14:30 | CT_ITS ---
WS: [id number] LDCT LUNG CANCER SCREENING HISTORY: jenny dep remission; quit 2021; 45pk yr; screening TECHNIQUE: Axial imaging performed from the apices to 1 cm below the costophrenic angles. Coronal and sagittal reformats are submitted with axial MIP series. All CT scans at [facility] use at least one of these dose optimization techniques: automated exposure control; mA and/or kV adjustment per patient size (includes targeted exams where dose is matched to clinical indication); or iterative reconstruction. DLP: 60.90 mGy.cm DIvol: Mean CTDIvol: 0.90 (mGy) COMPARISON: 07/21/2023 Diagnostic quality: Satisfactory Lungs: Pulmonary hyperexpansion. Calcified granulomata. Linear scar and nodule LEFT lower lobe is similar to the prior study with no progression. No increase in size of the 4 mm nodule. Smaller adjacent micronodule. No endobronchial lesions. Heart: Normal size heart with no pericardial effusion.. Other findings: Hilar and mediastinal calcified lymph nodes. No identifiable adenopathy. Small hiatal hernia. Splenic granulomata. Prior cholecystectomy. No adrenal mass. CT/CT lung screening [id number] IMPRESSION: LUNG-RADS: 2-Benign Appearance or Behavior FOLLOW UP: 12 Month: Continue annual screening with LDCT OTHER FINDINGS (S MODIFIER): None.
== END 2024-10-03 14:05 | disposition home or self-care (01) ==
LOC: RAD 14:05
PROVIDERS: PCP Family Medicine; Visit Provider Family Medicine
DX: Z12.2 Encounter for screening for malignant neoplasm of respiratory organs (principal); Z87.891 Personal history of nicotine dependence; R91.8 Other nonspecific abnormal finding of lung field; J84.10 Pulmonary fibrosis, unspecified; J98.4 Other disorders of lung; I89.8 Other specified noninfective disorders of lymphatic vessels and lymph nodes; K44.9 Diaphragmatic hernia without obstruction or gangrene; Z90.49 Acquired absence of other specified parts of digestive tract; D73.89 Other diseases of spleen
CPT/HCPCS: 71271

== ENCOUNTER 2024-10-15 08:05 | Outpatient (CLI) | payer MEDICAID, SELFPAY ==
--- NOTE | 2024-10-15 08:14 | XR_ITS ---
WS: [id number] XR cervical spine 3V* [id number] REASON FOR EXAM: neck pain FINDINGS: Straightening of the normal lordosis of the cervical spine. No focal vertebral body lesion. Moderate posterior and anterior osteophytosis C3-C7. Severe narrowing of the intervertebral disc space at C3-C4 with significant narrowing at C5-C6 and C6-C7. Significant anterolisthesis C4 in relation to C3. Moderate anterolisthesis of C4 in relation to C5 and C6 in relation to C5. XR/XR cervical spine 3V* [id number] IMPRESSION: Severe is degenerative spondylosis with malalignment as above.
[2024-10-15 09:07] LABS: Basophils # 0.1 10^3/uL (0.0-0.1); Basophils % 0.6 %; Eosinophils # 0.2 10^3/uL (0.0-0.8); Eosinophils % 2.2 %; Hematocrit 48.1 % (37-53); Lymphocytes # 3.6 10^3/uL (0.8-4.8); Mean Corpuscular HGB Conc 33.1 g/dL (30-55); Mean Corpuscular Hemoglobin 31.9 pg (27-33); Mean Corpuscular Volume 96.6 fl (82-101); Mean Platelet Volume 8.8 fL (7.4-10.4); Monocytes # 0.8 10^3/uL (0.2-0.9); Monocytes % 8.4 %; Neutrophils # 4.36 10^3/uL (1.8-7.7); Neutrophils % 48.5 %; Nucleated Red Blood Cells % 0 %; Platelet Count 354 10^3/cmm (157-399); Red Blood Count 4.98 10^6/uL (3.85-5.65); Red Cell Distribution Width 13.3 % (12.1-15.1); White Blood Count 8.98 10^3/uL (3.29-11.43)
[2024-10-15 09:24] LABS: Alanine Aminotransferase 10 U/L (0-41); Albumin Level 4.7 g/dL (3.5-5.2); Alkaline Phosphatase 115 U/L (40-130); Anion Gap 12.1 (5-19); Aspartate Amino Transferase 15 U/L (0-40); Blood Urea Nitrogen 11 mg/dL (8-23); Calcium 9.5 mg/dL (8.5-10.5); Carbon Dioxide 30 mmol/L (22-29); Chloride 102 mmol/L (98-107); Chol HDL Ratio 3.51 mg/dL (1.0-5.00); Cholesterol 172 mg/dL (0-200); Globulin 2.3 g/dL (1.3-4.6); Glomerular Filtration Rate 85.8 mL/min (90-130); Glucose 93 mg/dL (65-115); HDL Cholesterol 49 mg/dL (60-100); LDL Cholesterol Calculated 106 mg/dL (50-129); LDL HDL Ratio 2.16 RATIO (0.00-3.22); Osmolality Calculated 289 mOsm/kg (285-295); Potassium 4.1 mmol/L (3.5-5.1); Sodium 140 mmol/L (136-145); Total Bilirubin 0.3 mg/dL (0.15-1.2); Triglycerides 86 mg/dL (0-150)
== END 2024-10-15 08:06 | disposition home or self-care (01) ==
PROVIDERS: PCP Family Medicine; Visit Provider Family Medicine
DX: M47.892 Other spondylosis, cervical region (principal); R74.8 Abnormal levels of other serum enzymes; K21.00 Gastro-esophageal reflux disease with esophagitis, without bleeding; M19.021 Primary osteoarthritis, right elbow; M19.022 Primary osteoarthritis, left elbow; M50.31 Other cervical disc degeneration, high cervical region; M50.322 Other cervical disc degeneration at C5-C6 level; M50.323 Other cervical disc degeneration at C6-C7 level; M43.12 Spondylolisthesis, cervical region
CPT/HCPCS: 36415; 72040; 80053; 80061; 85025

== ENCOUNTER 2024-10-19 11:29 | Outpatient (CLI) | payer MEDICAID, SELFPAY ==
--- NOTE | 2024-10-19 11:45 | MR_ITS ---
WS: [id number] MRI CERVICAL SPINE NONCONTRAST TECHNIQUE: Sagittal T1, T2 and STIR imaging. Axial T2, gradient, and fiesta imaging. CLINICAL INFORMATION: bilateral cervical radiculopathy; R>L; severe changes on xra COMPARISON: None. FINDINGS: Straightening with slight reversal the normal cervical lordosis. Myelomalacia in the cervical cord at C3-C4. Retrolisthesis C3 on C4 with moderate to severe central canal stenosis with indentation and flattening of the cervical cord. Minimal spinal canal dimension measures 5.7 mm C2-C3: Advanced LEFT facet arthropathy. Severe LEFT bony foraminal narrowing. Mild RIGHT foraminal narrowing. C3-C4: Disc osteophyte protrusion with indentation and slight flattening of the cervical cord. Moderate to severe central canal stenosis. Severe LEFT greater than RIGHT bony foraminal narrowing. Moderate facet arthropathy uncovertebral joint hypertrophy. C4-C5: Broad-based central disc bulging. Moderate facet arthropathy. Mild central canal stenosis with slight indentation of the cervical cord. Moderate RIGHT and mild LEFT foraminal narrowing. Moderate facet arthropathy. C5-C6: Central disc osteophyte protrusion with indentation of the cervical cord. Moderate central canal stenosis. Moderate to severe bilateral bony foraminal narrowing. Moderate facet arthropathy. C6-C7: Disc osteophyte complex eccentric to the LEFT. Severe LEFT and moderate RIGHT bony foraminal narrowing. Mild to moderate central canal stenosis. C7-T1: Mild LEFT and no significant RIGHT foraminal narrowing. Spinal canal is patent. Visualized brain stem structures: Normal. Prevertebral soft tissues: Normal. MR/MR cervical spin wo con* [id number] IMPRESSION: 1. Straightening with slight reversal the normal cervical lordosis. 2. Moderate to severe central canal stenosis C3-C4 with central disc osteophyt e protrusion described above. Recommend spine surgery consultation. 3. Chronic myelomalacia in the cervical cord at C4. 4. Mild central canal stenosis C4-5 and moderate central canal stenosis C5-C6. 5. Multilevel moderate to severe bony foraminal narrowing described above. 6. Small amount of facet synovitis at LEFT C2-3 and RIGHT C4-5.
== END 2024-10-19 11:30 | disposition home or self-care (01) ==
PROVIDERS: PCP Family Medicine; Visit Provider Family Medicine
DX: M47.22 Other spondylosis with radiculopathy, cervical region (principal); M48.02 Spinal stenosis, cervical region; M25.78 Osteophyte, vertebrae; G95.89 Other specified diseases of spinal cord; M65.88 Other synovitis and tenosynovitis, other site; M43.12 Spondylolisthesis, cervical region; R93.7 Abnormal findings on diagnostic imaging of other parts of musculoskeletal system; M47.892 Other spondylosis, cervical region; M50.21 Other cervical disc displacement, high cervical region; M50.321 Other cervical disc degeneration at C4-C5 level; M50.222 Other cervical disc displacement at C5-C6 level; M48.03 Spinal stenosis, cervicothoracic region
CPT/HCPCS: 72141

== ENCOUNTER 2024-11-08 08:02 | Outpatient (CLI) | payer MEDICAID, SELFPAY ==
--- NOTE | 2024-11-08 08:07 | XR_ITS ---
WS: [id number] Exam: XR lumbar spine 2-3V* [id number] Date/Time of Exam: 11/08/2024 8:11 AM Reason For Exam: chronic low back pain Comparison 11/22/2011. No fracture. Degenerative vacuum disc at L5-S1 with spondylosis. Posterior elements are intact. Remaining discs are preserved. Facet DJD at L5-S1. XR/XR lumbar spine 2-3V* [id number] IMPRESSION: 1. No fracture or malalignment. 2. Moderate degenerative change at L5-S1 as detailed above.
--- NOTE | 2024-11-08 08:30 | FL_ITS ---
WS: [id number] Exam: FL barium swallow [id number] Date/Time of Exam: 11/08/2024 8:11 AM Reason For Exam: Fluoroscopy time: minutes # of spot films: 2 Comparison 03/17/2017. Oral pharyngeal phase of swallowing was normal. There was no evidence of esophageal mass or stricture. Normal esophageal motility was observed. The esophagus is not displaced. No hiatal hernia or gastroesophageal reflux identified. FL/FL barium swallow [id number] IMPRESSION: 1. Unremarkable barium swallow
== END 2024-11-08 08:03 | disposition home or self-care (01) ==
PROVIDERS: PCP Family Medicine; Visit Provider Family Medicine
DX: R13.10 Dysphagia, unspecified (principal); M47.897 Other spondylosis, lumbosacral region; M51.379 Other intervertebral disc degeneration, lumbosacral region without mention of lumbar back pain or lower extremity pain
CPT/HCPCS: 72100; 74220

== ENCOUNTER 2025-05-31 18:49 | Emergency (ER) | payer MEDICAID, SELFPAY ==
--- OUTSIDE RECORDS SUMMARY | 2025-05-30 09:05 | XMS_ITS | Encounter Summary ---
Author Organization [facility] Address [address] [place] [address] Care Team Providers Care Meteorological Observer Name Role Phone Unavailable Primary Care Provider Unavailabl e Encounter Details Date Type Department Care Team (Latest Contact Info) Description 05/30/2025 9:05 AM CHHA Ancillary Procedure [facility] Spine and Pain Radiology [address] [place] [address] Inessa Villalpando PA [address] [place] [id number] S/P cervical spinal fusion Social History Tobacco Use Types Packs/Day Years Used Date Smoking Tobacco: Former Cigarettes 1 43 1 979 - 2021 Smokeless Tobacco: Former Chew Quit: 2021 Comments:Chewed for 40 yrs Alcohol Use Standard Drinks/Week Comments Never 0 (1 standard drink = 0.6 oz pur e alcohol) Feeling Safe Answer Date Recorded Are you in a relationship wi th someone who hurts you emotionally and/or physically? No 12/31/2024 Sex and Gender Information Value Date Recorded Sex Assigned at Not on file Legal Sex Male 12:41 PM CHHA Gender Identity Not on file Sexual Orientation Not on file documented as of this encounter Plan of Treatment Not on file documented as of this encounter Procedures Procedure Name Priority Date/Time Associated Diagnosis Comments XR CERVICAL SPINE 2 OR 3 VIEWS Routine 05/30/2025 9:17 AM CHHA S/P cervical spinal fusion documented in this encounter Results * XR CERVICAL SPINE 2 OR 3 VIEWS (05/30/2025 9:17 AM CHHA) Anatomical Region Laterality Modality Spine Computed Radiogr aphy 05/30/2025 9:17 AM CHHA Impressions 05/30/2025 9:46 AM CHHA IMPRESSION: Please see below. Exam: XR CERVICAL SPINE 2 OR 3 VIEWS Date/Time of Exam: 05/30/2025 9:17 AM Reason For Exam: See Diagnosis. Diagnosis: S/P cervical spinal fusion. Comparison: 02/25/2025. Findings: Two upright views of the cervical spine demonstrate ACDF C3-4. Severe degenerative disc space narrowing C5-6 and C6-7. Stable mild anterior subluxation C2 on C3 and posterior subluxation of C5 on C6. Negative for acute apparent hardware complication. Multilevel facet degenerative change. Prevertebral soft tissues and posterior elements are otherwise unremarkable. A normal atlantoaxial relationship is identified. Old granulomatous residuals. Old healed fracture formers of the right first and second ribs. Impression: 1. Stable examination. Narrative Procedure Note Lulu Eubanks MD - 05/30/2025 IMPRESSION: Please see below. Exam: XR CERVICAL SPINE 2 OR 3 VIEWS Date/Time of Exam: 05/30/2025 9:17 AM Reason For Exam: See Diagnosis. Diagnosis: S/P cervical spinal fusion. Comparison: 02/25/2025. Findings: Two upright views of the cervical spine demonstrate ACDF C3-4. Severe degenerative disc space narrowing C5-6 and C6-7. Stable mild anterior subluxation C2 on C3 and posterior subluxation of C5 on C6. Negative for acute apparent hardware complication. Multilevel facet degenerative change. Prevertebral soft tissues and posterior elements are otherwise unremarkable. A normal atlantoaxial relationship is identified. Old granulomatous residuals. Old healed fracture formers of the right first and second ribs. Impression: 1. Stable examination. Inessa HEIN DIAGNOSTIC IMAGING OR DERABLES Final Result documented in this encounter Visit Diagnoses Diagnosis S/P cervical spinal fusion Arthrodesis status documented in this encounter
--- OUTSIDE RECORDS SUMMARY | 2025-05-30 09:30 | XMS_ITS | Encounter Summary ---
Author Organization [facility] Address [address] [place] [address] Care Team Providers Care Lime Filter Operator Name Role Phone Unavailable Primary Care Provider Unavailabl e Reason for Visit * Reason Comments Follow Up Encounter Details Date Type Department Care Team (Late st Contact Info) Description 05/30/2025 9:30 AM DUAL RATE DEALER Office Visit [facility] Spine Neurosurgery [address] [place] [address] Inessa Villalpando PA [address] [place] [address] S/P cervical spinal fusion (Primary Dx) Social History Tobacco Use Types Packs/Day Years [...] on file Legal Sex Male 12:41 PM DUAL RATE DEALER Gender Identity Not on file Sexual Orientation Not on file documented as of this encounter Last Filed Vital Signs Vital Sign Reading Time Taken Comments Blood Pressure 130/72 05/30/2025 9:27 AM DUAL RATE DEALER Pulse - - Temperature - - Respiratory Rate - - Oxygen Saturation - - Inhaled Oxygen Concentration - - Weight 63 kg (139 lb) 05/30/2025 9:27 AM DUAL RATE DEALER Height 177.8 cm (5' 10 ) 05/30/2025 9:27 AM DUAL RATE DEALER Body Mass Index 19.94 05/30/2025 9:27 AM DUAL RATE DEALER documented in this encounter Progress Notes * Inessa Villalpando PA - 05/30/2025 9:32 AM CST NEUROSURGERY Subjective: Patient seen today in follow up. Known to us from C3-4 ACDF done in December 2024. Doing very well overall, no pain. Symptoms from priorto surgery resolved. Having some minor muscle soreness at times. PMHX/ROS Patient Active Problem List Diagnosis Date Noted Preoperative general physical examination 12/05/2024 Cervical myelopathy ([facility]/HCC) 12/05/2024 COPD (chronic obstructive pulmonary disease) ([facility]) 12/05/2024 History of tobacco use 12/05/2024 Allergic rhinitis 12/05/2024 GERD without esophagitis 12/05/2024 Past Medical History: Diagnosis Date Arthritis Back pain Calculus of kidney 2023 Dyspnea on exertion Emphysema of lung ([facility]) COPD also Eye injury States metal was removed GERD (gastroesophageal reflux disease) Hiatal Hernia-pt declined Substance abuse ([facility]) Sober 2008 Past Surgical History: Procedure Laterality Date HX CHOLECYSTECTOMY 2006 HX SURGERY FOR CONGENITAL HERNIA 1974 HX ROTATOR CUFF REPAIR Left 2016 HX TENDON REPAIR Left 11/07/2023 TENDON REPAIR performed by Katya Lee MD at [facility] OR PA ARTHRD ANT INTERBODY DECOMPRESS CERVICAL BELW C2 N/A 12/31/2024 C3-4 ACDF performed by Marc Singh MD at [facility] OR PA ARTHROSCOPY WRIST SURGICAL SYNOVECTOMY PARTIAL Left 11/07/2023 WRIST ARTHROSCOPY performed by Katya Lee MD at [facility] OR (Not in a hospital admission) No Known Allergies Social History Tobacco Use Smoking status: Former Current packs/day: 0.00 Average packs/day: 1 pack/day for 43.0 years (43.0 ttl pk-yrs) Types: Cigarettes Start date: 1978 Quit date: 2021 Years since quittin.8 Smokeless tobacco: Former Types: Chew Quit date: 2021 Tobacco comments: Chewed for 40 yrs Substance Use Topics Alcohol use: Never No family history on file. REVIEW OF SYSTEMS: Review of Systems - General ROS: negative for weight changes, fever [facility]/PCP: No primary care provider on file. Objective: Vitals: 05/30/25 0927 BP: 130/72 Physical Exam: CONSTITUTIONAL: The patient is a normal appearing male in no apparent distress. GENERAL: WNWD, of stated age and in no acute distress. HEENT: Normocephalic, atraumatic with normal facial symmetry. Pupils equal, round, reactive to light, extraocular muscles intact bilaterally. PSYCH: The patient is alert and oriented to person, place and time. NEUROLOGICAL: exam reveals alert, oriented, normal speech, no focal findings or movement disorder noted, neck supple without rigidity, DTR's normal and symmetric, motor and sensory grossly normal bilaterally, normal muscle tone, no tremors, strength 5/5, abnormal findings: none. IMAGING: AP/Lateral xrays appear stable. Alignment looks good. Hardware is intact. ASSESSMENT/DIAGNOSIS: Problem List Items Addressed This Visit None Visit Diagnoses S/P cervical spinal fusion - Primary PLAN: Patient with previous C3-4 ACDF. Doing very well overall. No pain. X rays stable. Will plan to follow up with him as needed. TOBACCO COUNSELING He is not a tobacco/nicotine user. Chronic medical conditions are managed/monitored per PCP ANGEL LUIS Larsen RATE DEALER documented in this encounter Miscellaneous Notes * Patient Instructions - Monique Gonzáles, [facility] - 05/30/2025 9:[address] Singh, Tabby Dexter PA-C, and Inessa Villalpando PA-C may need further testing or referrals to treat you. If you have any issues, please call our office at [phone] and ask for Melody Garcia, Patient Service Specialist. If you are referred to another doctor or specialty, and they have not contacted you within 3 business days, please contact that office. Pain Management: [phone] Physical Therapy: [phone] Neurology: [phone] Physical Medicine & Rehabilitation (PM&R): [phone] Interventional Radiology (Kyphoplasty): [phone] If you had labs or imaging ordered at your appointment today, please stop by Check Out or Scheduling so the staff can arrange this for you. Labs: [facility] now partners with [employer] for lab work. You can schedule with them online to reduce your wait time. Labs are located in [facility] and [facility]. Imaging/Diagnostic such as MRI, CT, Ultrasound or Angiogram: Centralized scheduling will contact you to schedule this. If you would like to contact them, their number is [phone] or [phone] [facility] Neurosurgeons typically only prescribe pain medication after surgery. Due to prescribing laws, surgeons are only allowed to prescribe a one to two week supply of narcotic pain medicine at a time. Due to this, it is acceptable to request refills. Please read the instructions each time your pain medication is refilled as our office will taper you down as you near the end of your post surgicaltime. Please allow 1-2 business days for your refill to be processed. Multiple requests for medication refills disrupt and slow down the refill process. Thank you Also, Please be sure to check out [email or web address] as another tool to contact Tabby Fraga Makenzie, and Melody Garcia. RATE DEALER documented in this encounter Plan of Treatment Not on file documented as of this encounter Visit Diagnoses Diagnosis S/P cervical spinal fusion- Primary Arthrodesis status documented in this encounter
[2025-05-31 18:53] VITALS: BP 138/79; PULSE 79; RESP 16; TEMP 37; O2SAT 95
--- OUTSIDE RECORDS SUMMARY | 2025-05-31 19:00 | XMS_ITS | Encounter Summary ---
Author Organization [facility] Address [address] [place] [address] Care Team Providers Care Pizza Driver Name Role Phone Unavailable Primary Care Provider Unavailabl e Encounter Details Date Type Department Care Team (Late st Contact Info) Description 05/24/2025 Orders Only [facility] Spine Neurosurgery [address] [place] [address] Inessa Villalpando PA [address] [place] [address] S/P cervical spinal fusion (Primary [...] on file Legal Sex Male 12:41 PM YOUTH SUPPORT WORKER Gender Identity Not on file Sexual Orientation Not on file documented as of this encounter Plan of Treatment Not on file documented as of this encounter Results * XR CERVICAL SPINE 2 OR 3 VIEWS (05/30/2025 9:17 AM YOUTH SUPPORT WORKER) Anatomical Region Laterality Modality Spine Computed Radiogr aphy 05/30/2025 9:17 AM YOUTH SUPPORT WORKER Impressions 05/30/2025 9:46 AM YOUTH SUPPORT WORKER IMPRESSION: Please see below. Exam: XR CERVICAL [...] S/P cervical spinal fusion- Primary Arthrodesis status S/P cervical spinal fusion Arthrodesis status documented in this encounter
--- OUTSIDE RECORDS SUMMARY | 2025-05-31 19:00 | XMS_ITS | Clinical Summary ---
Author Organization [facility] Address [address] [place] [address] Phone Care Team Providers Care High Climber Name Role Phone Unavailable Primary Care Provider Unavailabl e Allergies No known active allergies Medications cetirizine (ZyrTEC) 10 mg tablet Take 10 mg by mouth daily. Active Advair Diskus 250-50 mcg/dose disk inhaler Take 1 Puff by inhalation see administration instructions. 09/07/19 24 Active famotidine (PEPCID) 40 mg tablet TAKE 1 TABLET BY MOUTH TWICE DAILY NEEDED FOR ACID REFLUX/HIATAL HERNIA 11/11/19 24 Active celecoxib (CeleBREX) 200 mg capsule Take 1 Capsule by mouth 2 times daily. 05/22/20 25 Active HYDROcodone-ac etaminophen (NORCO) 5-325 mg tabletIndicati ons:Cervical myelopathy (CMS/HCC),S/P cervical spinal fusion Take 1 Tablet by mouth every 4 hours as needed for Pain, Moderate. Max Daily Amount: 6 Tablets 42 Tablet 02/08/20 25 025 Discontinu ed(Alterna te therapy prescribed ) Active Problems Problem Noted Date Diagnosed Date Preoperative general physical examination 2024 Cervical myelopathy 12/05/2024 COPD (chronic obstructive pulmonary disease) History of tobacco use 12/05/2024 Allergic rhinitis 12/05/2024 GERD without esophagitis 12/05/2024 Encounters Date Type Department Care Team Description 05/30/2025 9:30 AM PULP REFINER OPERATOR Office Visit [facility] Spine Neurosurgery [address] [place] [address] Inessa Villalpando PA S/P cervical spinal fusion (Primary Dx) 05/30/2025 9:05 AM PULP REFINER OPERATOR Ancillary Procedure [facility] Spine and Pain Radiology [address] [place] [address] Inessa Villalpando PA S/P cervical spinal fusion 05/24/2025 Orders Only [facility] Spine Neurosurgery [address] [place] [address] Inessa Villalpando PA S/P cervical spinal fusion (Primary Dx) 05/08/2025 External Device Data STL ABSTRACTION Provider, Abstract 04/23/2025 External Device Data STL ABSTRACTION Provider, Abstract 03/26/2025 External Device Data STL ABSTRACTION Provider, Abstract 03/19/2025 External Device Data STL ABSTRACTION Provider, Abstract 03/06/2025 External Device Data STL ABSTRACTION Provider, Abstract from Last 3 Months Social History Tobacco Use Types Packs/Day Years Used Date Smoking Tobacco: Former Cigarettes 1 43 1 9 - 2021 Smokeless Tobacco: Former Chew Quit: [...] on file Legal Sex Male 12:41 PM PULP REFINER OPERATOR Gender Identity Not on file Sexual Orientation Not on file Last Filed Vital Signs Vital Sign Reading Time Taken Comments Blood Pressure 130/72 05/30/2025 9:27 AM PULP REFINER OPERATOR Pulse 58 01/01/2025 10:17 AM CDT Temperature 36.5 C (97.7 F) 01/01/2025 10:17 AM CDT Respiratory Rate 16 01/01/2025 8:00 AM CDT Oxygen Saturation 94% 01/01/2025 10:17 AM CDT Inhaled Oxygen Concentration - - Weight 63 kg (139 lb) 05/30/2025 9:27 AM PULP REFINER OPERATOR Height 177.8 cm (5' 10 ) 05/30/2025 9:27 AM PULP REFINER OPERATOR Body Mass Index 19.94 05/30/2025 9:27 AM PULP REFINER OPERATOR Plan of Treatment Health Maintenance Due Date Last Done Comments DTAP/TDAP/TD VACCINES (1 - Tdap) 09/19/1982 Preventative Visit-Managed Medicaid 09/19/1982 COLORECTAL SCREENING 09/19/2008 Colorectal Cancer Screening 09/19/2008 FIT-DNA Q 3 years 09/19/2008 FIT/FOBT Q 1 year 09/19/2008 Flex Sig/CT Colonography Q 5 years 09/19/2008 Lung Cancer Screening 09/19/2013 RSV VACCINE (60+ or ) (1 - Risk 50-74 years 1-dose series) 09/19/2013 ZOSTER VACCINE (1 of 2) 09/19/2013 INFLUENZA VACCINE (#1) 2025 COVID-19 Vaccine ( season) 03/18/202504/2021, 03/06/2021 Medical Devices Implanted Type Area Kennel Helper Device Identifier Shelf Expiration Date Model / Serial / Lot Cage Haseeb-C Lordotic [id number] [id number] - [id number] Implanted:Qty: 1 on 12/31/2024 by Marc Singh MD at [facility] Cage N/A: Neck [employer] [id number] 07/18/2025 [id number] / / [id number] Hemostatic Surgifoam 1gm 1977 - [id number] Implanted:Qty: 1 on 12/31/2024 by Marc Singh MD at [facility] Hemostatic N/A: Neck [employer] [id number] 08/08/20261977 / / [id number] Plate Haseeb-C Std [id number] - [id number] Implanted:Qty: 1 on 12/31/2024 by Marc Singh MD at [facility] Plate N/A: Neck [employer] [id number] 12/16/2028 [id number] / / [id number] Allograft Putty Influx+ Dbm 1ml Iflx-Fw-01 - [id number] Implanted:Qty: 1 on 12/31/2024 by Marc Singh MD at [facility] Tissue N/A: Neck [employer] 06/28/2027 IFLX-FW- 01 / [id number] / Procedures Procedure Name Priority Date/Time Associated Diagnosis Comments XR CERVICAL SPINE 2 OR 3 VIEWS Routine 05/30/2025 9:17 AM PULP REFINER OPERATOR S/P cervical spinal fusion from Last 3 Months Results * XR CERVICAL SPINE 2 OR 3 VIEWS (05/30/2025 9:17 AM PULP REFINER OPERATOR) Anatomical Region Laterality Modality Spine Computed Radiogr aphy 05/30/2025 9:17 AM PULP REFINER OPERATOR Impressions 05/30/2025 9:46 AM PULP REFINER OPERATOR IMPRESSION: Please see below. Exam: XR CERVICAL [...] HEIN DIAGNOSTIC IMAGING OR DERABLES Final Result from Last 3 Months Insurance RX INFOCROSSING Medicaid CLAIMS MANAGEMENT OF [facility] [address] [place] [address] RX SERVRX Commercial Advance Directives For more information, please contact: [phone] * Full Code (Latest Code Status on File) Date Activated Date Inactivated Comments 12/31/2024 12:37 PM 01/01/2025 12:45 PM * Full Code Date Activated Date Inactivated Comments 11/07/2023 6:49 AM 11/07/2023 1:51 PM
--- OUTSIDE RECORDS SUMMARY | 2025-05-31 19:01 | XMS_ITS | Patient Health Record ---
Author Organization [facility] Address [address] [place] [address] Care Team Providers Care Pump Tester Name Role Phone Martin Kaminski Unavailable [phone] Reason For Referral No Information Medications Medication SIG (Take, Route, Frequency, Duration) Notes Start Date End Date Status Questran Light 4 gram Powder Dissolve 1 scoop in 2 to 6 ounces of water or juice daily Oral; Duration: 30 *please review for potential update for e-prescription and drug interaction check* Questran Light 4gm/5gm Powder for Reconstitution, Oral Dissolve 1 scoop in 2 to 6 ounces of water or juice daily #1 (One) 268 gm container 05/08/2008 Active Problems Problem Type SNOMED Code ICD Code Onset Dates Problem Status W/U Status Risk Notes Problem Basal cell cancer of external nose (173.3) 05/08/2008 Active confirmed [id number] 1- Problem Cough (92225400) Cough (786.2) 04/29/2008 Problem resolved confirmed [id number] 1- Problem Diarrhea (23911855) Diarrhea (787.91) 05/08/2008 Problem resolved confirmed [id number] 1- Plan Of Treatment No Information Insurance Providers Payer Name Payer Address Payer Phone Subscriber Number Group Number Insured Name Patient Relationship to Insured Coverage Start Date Coverage End Date [facility] [address] [place] [address] [phone] [id number] Lit Reis Self - patient is the insured Medical (General) History Surgical History Surgery Date(Month/Year) CholecystectomyHernia Repair
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
[2025-05-31 19:40] VITALS: BP 130/77; PULSE 75; O2SAT 92
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
[2025-05-31] MEDS: orphenadrine 30 mg/mL Inj 2 mL 60 MG IM (21:12)
[2025-05-31 21:19] VITALS: BP 120/73; PULSE 84; O2SAT 92
[2025-05-31 21:20] VITALS: BP 120/73; PULSE 84; O2SAT 92
== END 2025-05-31 21:21 | disposition home or self-care (01) ==
PROVIDERS: Emergency Provider Physician Assistant; PCP Family Medicine
DX: S10.93XA Contusion of unspecified part of neck, initial encounter (principal); Y04.2XXA Assault by strike against or bumped into by another person, initial encounter; Z87.891 Personal history of nicotine dependence; J44.9 Chronic obstructive pulmonary disease, unspecified; S01.511A Laceration without foreign body of lip, initial encounter
CPT/HCPCS: 70450; 72125; 96372; 99284; J1100; J1885; J2360